=== PATIENT | female | born 1990 | race Caucasian/White ===

== ENCOUNTER 2024-01-12 16:53 | Emergency (ER) | payer MEDICAID, SELFPAY ==
[2024-01-12 16:54] VITALS: BP 172/120; PULSE 115; RESP 22; TEMP 36; O2SAT 98; BMI 56.0
[2024-01-12 17:13] VITALS: BP 172/120; PULSE 115; RESP 22; TEMP 36; O2SAT 98
--- NOTE | 2024-01-12 17:15 | ED.VIS.DENTA ---
HPI History of Present Illness Chief Complaint: Dental Narrative Narrative: 33-year-old female presents requesting prescription for antibiotics for an abscessed tooth. She relates history that she was having left upper jaw pain and went to the dentist approximately 5 days ago. She was not placed on antibiotic but was told that she had an abscessed tooth, #14. She does vape/smoke. She denies any fevers or chills, but states that yesterday she was having pain in her left upper jaw, and got pus out of her left tooth #14. While she has follow-up with a maxillofacial dental surgeon in early January, she is concerned that she needs to be on antibiotics since she got pus out of the area. She denies any fevers or chills. She states she is not really having pain currently. PFSH PFS Home Medications bupropion HCl 75 mg tablet 75 mg PO DAILY 06/14/17 [History Last Taken Unknown] penicillin V potassium 500 mg tablet 500 mg PO Q6H 7 days #28 tabs 01/12/24 [Rx Last Taken Unknown] Allergy/AdvReac Type Severity Reaction Status Date / Time No Known Allergies Allergy Verified 06/14/17 13:23 Social History Smoking Status: Never smoker ROS ROS ED ROS Narrative Constitutional: No fever, no chills. HEENT: No sore throat. No neck pain. No loss of vision. No rhinorrhea. Previous dental pain left upper jaw. Pus from tooth #14. Cardiovascular: No chest pain. No palpitations. No pedal edema. Respiratory: No cough, no shortness of breath. Abdominal: No abdominal pain. No nausea. No vomiting. Genitourinary: No dysuria. No hematuria. Musculoskeletal: No myalgias. No arthralgias. Neurologic: No headaches. No dizziness. No lightheadedness. Skin: No rash. No change in color. Psychiatric: No depression. No anxiety. EXAM Physical Exam Narrative Exam Narrative: Afebrile. Vital signs noted. HEENT: Normocephalic. Atraumatic. PERRL, EOMI. Neck soft and supple. No point tenderness or step off. Positive dental caries left upper jaw especially tooth #14. No fluctuance of the gum. No drooling or trismus. Airway patent. No Jhoantan angina. Cardiovascular: Regular rate and rhythm with intermittent tachycardia. No murmurs, rubs, or gallops appreciated. Respiratory: No tachypnea. Lungs clear to auscultation bilaterally. Gastrointestinal: Abdomen soft, nontender, with normoactive bowel sounds. No rebound or guarding. Neurological: Awake. Alert. Nonfocal, nonlateralizing. Skin: No rash. Normal color. No pallor. Musculoskeletal: No pedal edema. Full range of motion extremities. Const Vital Signs: 01/12/24 16:54 01/12/24 17:13 Temperature 96.8 F L 96.8 F L Temperature Source Temporal Pulse Rate 115 H 115 H Respiratory Rate 22 H 22 H Blood Pressure 172/120 H 172/120 H Blood Pressure Mean 137 137 Pulse Ox 98 98 Oxygen Delivery Method Room Air MDM MDM MDM Narrative Medical decision making narrative: Patient seems mildly anxious. She was reassured. Smoking cessation/vaping cessation was discussed with her. There is no drainable abscess currently. She was given a prescription for penicillin for the next week to take 4 times a day until she sees her maxillofacial surgeon for tooth extraction. She will take [id number] analgesics as needed. I do not feel she requires observation at this time. Disposition is discharged home in stable condition. Discharge Plan Triage Chief Complaint: Dental ED Provider: Rick Olguin Dx/Rx/DC Orders Clinical Impression: Abscessed tooth Instructions: ED Dental Abscess Prescriptions: New penicillin V potassium 500 mg tablet 500 mg PO Q6H 7 Days Qty: 28 0RF No Action bupropion HCl 75 MG tablet 75 mg PO DAILY Primary Care Provider: Yony Crockett Referrals: Yony Crockett MD [Primary Care Provider] - Activity Restrictions/Additional Instructions: Follow-up with the dental surgeon as scheduled in early January. Stop vaping. Disposition Disposition: Home, Self Care
--- OUTSIDE RECORDS SUMMARY | 2024-01-12 20:02 | XMS RPT_ITS | CCD ---
Author Name Unknown Address [facility] [address] [place] [id number] Organization [facility] Care Team Providers Care Digital Measurement Advisor Name Role Phone MICHAEL WASHINGTON Admitting Unavailable MICHAEL WASHINGTON Attending Unavailable MACO MORRISON Admitting Unavailable MACO MORRISON Attending Unavailable MACO MORRISON Primary Care Unavailable HENNY DAS Consulting Unavailable PROVIDER, UNKNOWN Consulting Unavailable PROVIDER, UNKNOWN Consulting Unavailable PROVIDER, UNKNOWN Consulting Unavailable Problems Problem Classification Problem Date Documented Date Episodic/Chronic Biliary tract disease (1 source) Calculus of gallbladder without cholecystitis without obstruction; Translations: [Calculus of gallbladder without cholecystitis without obstruction] Onset: 01-09-2019 Episodic Essential hypertension (1 source) Essential (primary) hypertension; Translations: [Essential (primary) hypertension] Onset: 09-30-2020 Chronic Other screening for suspected conditions (not mental disorders or infectious disease) (1 source) Encounter for screening for lipoid disorders; Translations: [Encounter for screening for lipoid disorders] Onset: 09-30-2020 Episodic Results Test Name Value Interpretation Reference Range Facil ity Encounters Encounter Date Encounter Type Care Provider Facility Start: 09-30-2020 End: 09-30-2020 Patient encounter procedure MACO MORRISON [facility] Start: 01-09-2019 End: 01-09-2019 Patient encounter procedure MICHAEL WASHINGTON [facility] Payers Date Payer Category Payer Unknown [id number] Private Health Insurance [id number] Summary Purpose Family History No Family History Records FoundNo Family History Records Found Advance Directives No Advanced Directives Records FoundNo Advanced Directives Records Found Additional Source Comments INFORMATION SOURCE (unrecogn ized section and content) DATE CREATED AUTHOR AUTHOR'S ORGANIZ ATION 10/03/2020 [facility] FOR RECORDS PERTAINING TO PATIENTS WHO ARE OR HAVE BEEN ENROLLED IN A CHEMICAL DEPENDENCY/SUBSTANCEABUSE PROGRAM, SOME INFORMATION MAY BE OMITTED. This clinical summary was aggregated from multiple sources. Caution should be exercised in using it in the provision of clinical care. This summary normalizes information from multiple sources, and as a consequence, information in this document may materially change the coding, format and clinical context of patient data. In addition, data may be omitted in some cases. CLINICAL DECISIONS SHOULD BE BASED ON THE PRIMARY CLINICAL RECORDS. [facility] [employer] provides no warranty or guarantee of the accuracy or completeness of information in this document.
== END 2024-01-12 17:23 | disposition home or self-care (01) ==
LOC: ED 17:19
PROVIDERS: Emergency Provider Emergency Medicine; PCP Family Medicine; Visit Provider Emergency Medicine
DX: K04.7 Periapical abscess without sinus (principal); F17.290 Nicotine dependence, other tobacco product, uncomplicated
CPT/HCPCS: 99282